=== PATIENT | female | born 1980 | race Caucasian/White ===

== ENCOUNTER 2020-10-17 04:08 | Emergency (ER) | payer BC ==
[~2020-10-17] VITALS: Ht 175.3 cm; Wt 132.3 kg
[2020-10-17 04:13] VITALS: TEMP 97.4
[2020-10-17] MEDS ORDERED: FIORICET 325 MG1 TA1 PO (05:44)
[2020-10-17 05:50] VITALS: BP 154/70; PULSE 80
== END 2020-10-17 05:51 | disposition home or self-care (01) ==
LOC: COL.ER 04:08
DX: R51.9 Headache, unspecified (principal); Z86.69 Personal history of other diseases of the nervous system and sense organs; Z88.4 Allergy status to anesthetic agent
CPT/HCPCS: J1200; J1885; J2765; J7030

== ENCOUNTER 2022-03-25 15:25 | Emergency (ER) | payer BC ==
[2022-03-25] VITALS (7 sets, daily range): BP systolic 165–187; BP diastolic 91–113; PULSE 86–94; TEMP 98.6–98.9
[~2022-03-25] VITALS: Ht 175.3 cm; Wt 131.8 kg
[~2022-03-25 15:25] MED LIST: FIORICET 325 MG1 TA1 PO
[2022-03-25 16:28] LABS: BASO % 0.4 % (0.0-2.0); EOS % 0.4 % (0.0-4.0); GRAN # 5.1 K/mm3 (1.4-6.5); GRAN % 72.4 % (42.2-75.2); LYMPH # 1.5 K/mm3 (1.2-3.4); LYMPH % 20.9 % (20.0-51.0); MEAN CELL VOLUME 63 fl (80.0-100.0); MEAN CORPUSCULAR HGB CONC 29 g/dl (33.0-37.0); MEAN PLATELET VOLUME 9.8 fl (7.4-10.4); MONO # 0.4 K/mm3 (0.1-0.6); MONO % 5.1 % (1.7-9.3); PLATELET COUNT 241 K/mm3 (130-400); RED BLOOD COUNT 3.85 M/mm3 (4.10-5.30); REDCELL DISTRIBUTION WIDTH-CV 17.7 % (11.5-14.5)
[2022-03-25 16:32] LABS: HEMATOCRIT 24.3 % (37.0-47.0); HEMOGLOBIN 7.1 g/dl (12.5-16.0); MEAN CORPUSCULAR HEMOGLOBIN 18 pg (27-31)
[2022-03-25 16:45] LABS: ALBUMIN 3.3 gm/dL (3.5-5.0); BILIRUBIN,TOTAL 0.3 mg/dL (0.2-1.2); CALCIUM 8.6 mg/dL (8.4-10.2); CREATININE, serum 0.74 mg/dL (0.57-1.11); POTASSIUM 3.9 mmol/L (3.5-4.5); TOTAL PROTEIN 6.8 gm/dL (6.2-8.1)
[2022-03-25] MEDS ORDERED: NEURONTIN300 MG/CAP PO (17:45)
[2022-03-25] MEDS ORDERED: ZOLOFT 100MG100 MG PO (17:46)
[2022-03-25] MEDS ORDERED: MILI 0.25-0.031 EACH PO (17:46)
[2022-03-25] MEDS ORDERED: GLUCOPHAGE850 MG/TAB PO (18:50)
== END 2022-03-25 20:42 | disposition home or self-care (01) ==
LOC: COL.ER 15:25
PROVIDERS: Family Medicine
DX: N92.0 Excessive and frequent menstruation with regular cycle (principal); D64.9 Anemia, unspecified; E11.65 Type 2 diabetes mellitus with hyperglycemia; Z87.891 Personal history of nicotine dependence; Z79.84 Long term (current) use of oral hypoglycemic drugs
CPT/HCPCS: J7120; P9016

== ENCOUNTER 2022-03-28 11:11 | Emergency (ER) | payer BC ==
[~2022-03-28] VITALS: Ht 175.3 cm; Wt 131.8 kg
[~2022-03-28 11:11] MED LIST changes: +GLUCOPHAGE850 MG/TAB PO; +MILI 0.25-0.031 EACH PO; +NEURONTIN300 MG/CAP PO; +ZOLOFT 100MG100 MG PO
[2022-03-28 11:32] VITALS: TEMP 98.7
[2022-03-28 12:15] LABS: BASO % 0.4 % (0.0-2.0); EOS % 0.2 % (0.0-4.0); GRAN # 6.4 K/mm3 (1.4-6.5); GRAN % 77.6 % (42.2-75.2); HEMATOCRIT 26.3 % (37.0-47.0); HEMOGLOBIN 7.8 g/dl (12.5-16.0); LYMPH # 1.4 K/mm3 (1.2-3.4); LYMPH % 17.1 % (20.0-51.0); MEAN CELL VOLUME 66 fl (80.0-100.0); MEAN CORPUSCULAR HEMOGLOBIN 19 pg (27-31); MEAN CORPUSCULAR HGB CONC 30 g/dl (33.0-37.0); MEAN PLATELET VOLUME 9.8 fl (7.4-10.4); MONO # 0.3 K/mm3 (0.1-0.6); PLATELET COUNT 268 K/mm3 (130-400); RED BLOOD COUNT 4.01 M/mm3 (4.10-5.30); REDCELL DISTRIBUTION WIDTH-CV 19.7 % (11.5-14.5)
[2022-03-28 12:28] LABS: ALBUMIN 3.4 gm/dL (3.5-5.0); BILIRUBIN,TOTAL 0.4 mg/dL (0.2-1.2); CALCIUM 8.7 mg/dL (8.4-10.2); CREATININE, serum 0.81 mg/dL (0.57-1.11); POTASSIUM 4.2 mmol/L (3.5-4.5); TOTAL PROTEIN 6.9 gm/dL (6.2-8.1)
[2022-03-28 14:49] VITALS: BP 177/105; PULSE 95
== END 2022-03-28 15:00 | disposition home or self-care (01) ==
LOC: COL.ER 11:11
PROVIDERS: Nurse Practitioner
DX: D64.9 Anemia, unspecified (principal); N92.0 Excessive and frequent menstruation with regular cycle
CPT/HCPCS: J7030